=== PATIENT | female | born 1985 | race Caucasian/White ===

== ENCOUNTER 2016-11-18 18:30 | Inpatient (IN) | payer BC, SELFPAY ==
[~2016-11-18] VITALS: Ht 162.6 cm; Wt 102.1 kg
--- NOTE | ~2016-11-18 | FD ---
ADMIT: 11/18/2016 RM/LOC: 201 [facility] MR#: [id number] [address] [id number] [facility] [place] [address] Final Diagnosis SEX: F AGE: 31 : 1985 ADMISSION DATE: 11/18/2016 DISCHARGE DATE: 11/20/2016 PRIMARY DIAGNOSES: 1. Status post spontaneous vaginal delivery at term. 2. Chronic hypertension with superimposed preeclampsia. PROCEDURES PERFORMED: On 11/19/2016, spontaneous vaginal delivery with delivery of a viable female infant, weighing 7 pounds, 3 ounces with scores of 9 at 1 minute, 9 at 5 minutes. Meg Garsia MD/ collettel JOB #: [id number] CC: Meg Garsia MD, Attending Physician Daquan Alfaro MD, Family Physician
[2016-11-22] MEDS ORDERED: LEXAPRO DPS20 MG PO (07:50)
[2016-11-22] MEDS ORDERED: LYRICA75 MG PO (07:50)
[2016-11-22] MEDS ORDERED: PRENATAL VIT1 TAB PO (07:50)
[2016-11-22] MEDS ORDERED: MUCINEX600 MG PO (07:52)
[2016-11-22] MEDS ORDERED: MAGNESIUM OXID500 MG PO (07:52)
[2016-11-22] MEDS ORDERED: ZYRTEC DPS10 MG PO (07:52)
[2016-11-22] MEDS ORDERED: COLACE-DPS100 MG PO (07:52)
[2016-11-22] MEDS ORDERED: MOTRIN-DPS800 MG PO (07:54)
[2016-11-22] MEDS ORDERED: TYLENOL EXTRA500 M1 PO (07:56)
--- NOTE | 2016-12-14 09:19 | HP ---
ADMIT: 11/18/2016 RM/LOC: 201 [facility] MR#: [id number] [facility] [address] [place] [id number] [place] [address] History and Physical SEX: F AGE: 31 : 1985 DATE OF SERVICE: CHIEF COMPLAINT: Induction of labor. HISTORY OF PRESENT ILLNESS: This is a 31-year-old female, 4, para 2-0- 1-2, who presents to the [facility] [place] on the evening of 11/18/2016 for induction of labor. Her estimated date of confinement is 12/08/2016 and this is based off a 7-week ultrasound, and she is currently 37 and 07/10 weeks' gestation. 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 She did have a negative thrombophilia workup after her 16-week loss. She was seen and evaluated by Maternal Medicine. She was noted to have worsening proteinuria at 31 weeks. She has had reassuring antepartum testing and blood pressures in the mildly elevated range and at this time presents for induction of labor. PAST OBSTETRICAL HISTORY: Her first was complicated by chronic hypertension with superimposed preeclampsia. She delivered that baby at 37 weeks. She weighed 6 pounds 12 ounces. Her second ended in a 16- week demise. Third , she was induced at 38 weeks secondary to developing weakness, that baby weighed 7 pounds 10 ounces and she subsequently developed Huma-Hoolehua syndrome and was hospitalized four months following delivery. PAST MEDICAL HISTORY: Chronic hypertension and history of Guillain-Hoolehua. She denies diabetes, asthma, kidney, or thyroid disease. PAST SURGICAL HISTORY: Tonsillectomy in 1995, arthroscopy of her right knee in 2006. D and C for retained placenta in 2012. SOCIAL HISTORY: She is . She denies tobacco, alcohol, or drug use. ALLERGIES: SULFA. CURRENT MEDICATIONS: vitamins, Lyrica 75 mg b.i.d., Lexapro 20 mg daily, magnesium 250 mg daily, Mucinex daily, and Zyrtec 10 mg daily. PHYSICAL EXAMINATION: VITAL SIGNS: Temperature is 99.1, blood pressure 142/81, pulse 100, and respirations 16. GENERAL: This is a pleasant female, in no acute distress. HEENT: Head is normocephalic and atraumatic. Pupils are equal, round, reactive to light and accommodation. Extraocular muscles are intact. NECK: Supple. HEART: Regular rate and rhythm. LUNGS: Clear bilaterally. ABDOMEN: Soft, nontender, and nondistended. Gravid. ADMIT: 11/18/2016 RM/LOC: 201 [facility] MR#: [id number] [address] [place] [id number] [place], [place] [address] History and Physical SEX: F AGE: 31 : 1985 EXTREMITIES: Nontender. heart tones are 120s, baseline, moderate variability is present, 15 x 15 accelerations are present. Decelerations are absent. Uterine contractions are irregular. Her cervix is 1 to 2 cm dilated, less than 50% effaced, -3 station. Fetus is vertex. Estimated weight 7.5 pounds. IMPRESSION: This is a 31-year-old female, 4, para 2-0-1-2 with an intrauterine at 37-1/7th weeks' gestation. 1. Chronic hypertension with superimposed preeclampsia. 2. History of subchorionic hemorrhage in the first trimester. 3. History of an intrauterine demise at 16 weeks. 4. History of Guillain-Hoolehua disease. 5. Group B streptococcus negative. PLAN: At this time, we do plan to proceed with induction of labor. We will start by placing misoprostol 25 mcg vaginally. Repeat this as needed. Use assisted rupture of membranes and Pitocin as needed and anticipate a spontaneous vaginal delivery. Meg Garsia MD/ rajiv JOB #: [id number] CC: Meg Garsia, Attending Physician Daquan Alfaro, Family Physician
--- NOTE | 2016-12-14 09:24 | OR ---
ADMIT: 11/18/2016 RM/LOC: 201 [facility] MR#: [id number] [facility] [address] [place] [id number] [place] [address] Operative/Delivery Room Report SEX: F AGE: 31 : 1985 SURGERY DATE: 11/19/2016 SURGEON: Meg Garsia MD PREOPERATIVE DIAGNOSES: 1. Intrauterine at 37 and 2/7th weeks' gestation. 2. Chronic hypertension with superimposed preeclampsia. 3. Group B streptococcus negative. POSTOPERATIVE DIAGNOSES: 1. Intrauterine at 37 and 2/7th weeks' gestation. 2. Chronic hypertension with superimposed preeclampsia. 3. Group B streptococcus negative. 4. With delivery of a viable female at 1433 hours weighing 7 pounds 3 ounces with Apgars of 9 at 1 minute and 9 at 5 minutes. PROCEDURE: Spontaneous vaginal delivery with repair of small second-degree midline laceration. ANESTHESIA: Epidural. COMPLICATIONS: None. ESTIMATED BLOOD LOSS: 250 mL. FLUIDS: Crystalloid. INDICATIONS: This is a 31-year-old female, 4, para 2-0-1-2, who [facility] with an intrauterine at 37-1/7th weeks' gestation for induction of labor. Her is complicated by chronic hypertension with superimposed preeclampsia, history of a first trimester subchorionic hemorrhage, history of an IUFD at 16 weeks, and history of Guillain-[place] syndrome. She was given 1 dose of misoprostol 25 mcg vaginally. She subsequently was started on Pitocin. Assisted rupture of membranes was performed when she was 3 cm dilated. She did request and received an epidural for pain control. She progressed to be complete in a satisfactory fashion at which time, she was allowed to push bringing the infant's vertex to the perineum. PROCEDURE IN DETAIL: The patient was noted to be complete. She was placed in the dorsal lithotomy position and prepped and draped in the usual sterile fashion. She was asked to push and deliver the infant's vertex in the left occiput anterior position over the midline. Nuchal cord x1 was relieved ADMIT: 11/18/2016 RM/LOC: 201 [facility] MR#: [id number] [id number] [id number] [address] [place] [address] Operative/Delivery Room Report SEX: F AGE: 31 : 1985 around the 's vertex. The anterior and posterior shoulders as well as remainder of the were easily delivered. She did have spontaneous cry and movement of all 4 extremities. The infant was passed to the mother's abdomen where nursing personnel were in attendance. After 1 minute, the cord was clamped x2 and cut by the father. Cord blood was obtained. Twenty units of Pitocin were infused with IV fluids to help firm the uterus. The placenta delivered intact spontaneously. The uterus was not explored. Examination of the cervix and vaginal vault did not reveal any lacerations. Examination of the perineum revealed a small midline second degree laceration. This was repaired using 3-0 Vicryl in the usual fashion. The patient tolerated the procedure well. Sponge, needle, and instrument counts were correct. The patient did recover in her Labor and Delivery suite with her . Meg Garsia MD/ rajiv JOB #: [id number] CC: Meg Garsia, Attending Physician Daquan Alfaro, Family Physician
== END 2016-11-20 15:35 | disposition home or self-care (01) | DRG 774 ==
LOC: BC 18:30 → 2LDRP 18:30 → BC 12-08 08:00
PROVIDERS: ADMIT Obstetrics & Gynecology
PROC: 0KQM0ZZ Repair Perineum Muscle, Open Approach (ICD-10-PCS; principal; 2016-11-19)
PROC: 10E0XZZ Delivery of Products of Conception, External Approach (ICD-10-PCS; principal; 2016-11-19)
PROC: 10907ZC Drainage of Amniotic Fluid, Therapeutic from Products of Conception, Via Natural or Artificial Opening (ICD-10-PCS; principal; 2016-11-19)
PROC: 3E0P7GC Introduction of Other Therapeutic Substance into Female Reproductive, Via Natural or Artificial Opening (ICD-10-PCS; principal; 2016-11-19)
DX: O11.4 Pre-existing hypertension with pre-eclampsia, complicating childbirth (principal); O10.02 Pre-existing essential hypertension complicating childbirth; O69.81X0 Labor and delivery complicated by cord around neck, without compression, not applicable or unspecified; O70.1 Second degree perineal laceration during delivery; Z3A.37 37 weeks gestation of pregnancy; Z37.0 Single live birth